=== PATIENT | female | born 1990 | race Caucasian/White ===

== ENCOUNTER 2024-12-19 12:37 | Inpatient (IN) | payer OTHER ==
[~2024-12-19] VITALS: Ht 149.9 cm; Wt 71.3 kg
[2024-12-19 12:48] VITALS: O2SAT 100
[2024-12-19] MEDS ORDERED: CEFTRIAXONE 1GM/50ML 50 ML IV ONE (14:00)
[2024-12-19 14:23] LABS: HEMATOCRIT. 36.0 % (36.0-48.0); HEMOGLOBIN. 11.5 g/dL (12.0-16.0); MEAN PLATELET VOLUME 8.0 fl (7.4-10.4); PLATELET 368 x1000/uL (130-400); RED BLOOD CELL COUNT 4.24 mill/uL (4.2-5.4); RED CELL DISTRIBUTION WIDTH 15.1 % (11.6-14.6)
[2024-12-19 14:38] LABS: CREATININE 0.6 mg/dL (0.6-1.0); UREA NITROGEN BLOOD < 5 mg/dL (9-23)
[2024-12-19 14:40] LABS: BAND% 11.0 % (1.0-6.0); LYMPHOCYTES % MANUAL 11.0 % (20.0-60.0); MONOCYTES % MANUAL 3.0 % (2.0-8.0); NEUTROPHILS % MANUAL 75.0 % (45.0-75.0); PLATELET ESTIMATE NORMAL
[2024-12-19 14:42] LABS: CLARITY URINE CLEAR (CLEAR); COLOR URINE YELLOW (YELLOW); GLUCOSE URINE NEGATIVE (NEGATIVE); KETONES URINE NEGATIVE (NEGATIVE); LEUKOCYTE ESTERASE URINE 1+ (NEGATIVE); NITRITE URINE POSITIVE (NEGATIVE); OCCULT BLOOD URINE 2+ (NEGATIVE); PH URINE 8.0 (4.5-8.0); PROTEIN URINE 1+ (NEGATIVE); SPECIFIC GRAVITY URINE 1.011 (1.005-1.030); UROBILINOGEN URINE 1.0 E.U./dL (0.2-1.0)
[2024-12-19 14:49] LABS: TROPONIN I HIGH SENSITIVITY < 4 ng/L (3.0-34)
[2024-12-19 14:52] LABS: HCG SCREEN NEGATIVE
[2024-12-19] MEDS: SODIUM CHLORIDE 0.9% (SEPSIS BOLUS) IV ONE (14:58)
[2024-12-19 15:06] LABS: *AMPHETAMINES SCREEN URINE NEGATIVE (NEGATIVE); *BARBITURATES SCREEN URINE NEGATIVE (NEGATIVE); *BENZODIAZEPINES SCREEN URINE NEGATIVE (NEGATIVE); *COCAINE SCREEN URINE NEGATIVE (NEGATIVE); METHADONE URINE SCREEN NEGATIVE (NEGATIVE); OPIATES URINE SCREEN NEGATIVE (NEGATIVE)
[2024-12-19 15:07] LABS: CANNABINOID URINE SCREEN NEGATIVE (NEGATIVE); ECSTASY MDMA SCREEN URINE NEGATIVE (NEGATIVE); PHENCYCLIDINE URINE SCREEN NEGATIVE (NEGATIVE)
[2024-12-19 15:14] LABS: BACTERIA URINE 4+; SQUAMOUS EPITHELIAL CELL URINE FEW /lpf (RARE/1+)
[2024-12-19] MEDS: ACETAMINOPHEN 500MG TABLET PO SCH (15:19)
[2024-12-19] MEDS: KETOROLAC 30MG/ML VIAL IV NR (15:19)
[2024-12-19] MEDS: CEFTRIAXONE 1GM/50ML 50 ML IV NR (15:20)
[2024-12-19 16:40] VITALS: BP 98/66; PULSE 125; RESP 18; TEMP 35.9; O2SAT 98
[2024-12-19 17:21] VITALS: BP 98/66; PULSE 125; RESP 16; TEMP 35.6952
[2024-12-19] MEDS ORDERED: ONDANSETRON HCL 4MG/2ML INJ IV PRN (17:30)
[2024-12-19 20:00] VITALS: BP 92/55; PULSE 113; RESP 19; TEMP 36.8; O2SAT 100
[2024-12-19] MEDS: HYDROCODONE/ACETAMINOPHEN 10/325MG TABLET PO PRN (22:51)
[2024-12-20] VITALS: BP 102/56; PULSE 138; RESP 19; TEMP 38.4; O2SAT 97
[2024-12-20 08:00] VITALS: BP 99/51; PULSE 125; RESP 18; TEMP 36.7; O2SAT 98
[2024-12-20 12:00] VITALS: BP 124/82; PULSE 98; RESP 18; TEMP 35.8; O2SAT 98
[2024-12-20] MEDS ORDERED: NALOXONE HCL 0.4MG/ML VIAL IV PRN (12:15)
[2024-12-20] MEDS: SODIUM CHLORIDE 0.9% 1,000 ML IV SCH (12:52)
[2024-12-20] MEDS: CEFTRIAXONE 1GM/50ML 50 ML IV SCH (15:02)
[2024-12-20 16:00] VITALS: BP 127/73; PULSE 119; RESP 19; TEMP 36.2; O2SAT 98
[2024-12-20 20:00] VITALS: BP 103/64; PULSE 114; RESP 20; TEMP 36.7; O2SAT 99
[2024-12-21] VITALS: BP 115/70; PULSE 115; RESP 20; TEMP 36.3; O2SAT 97
[2024-12-21 04:00] VITALS: BP 96/62; PULSE 118; RESP 19; TEMP 36.6; O2SAT 97
[2024-12-21 08:00] VITALS: BP 107/66; PULSE 125; RESP 18; TEMP 36.7; O2SAT 97
[2024-12-21] MEDS: METOPROLOL TARTRATE 25MG TABLET PO SCH (09:13)
[2024-12-21 12:00] VITALS: BP 110/61; PULSE 109; RESP 18; TEMP 36.7; O2SAT 98
[2024-12-21 12:00] LABS: HEMATOCRIT. 31.3 % (36.0-48.0); HEMOGLOBIN. 9.9 g/dL (12.0-16.0); RED BLOOD CELL COUNT 3.73 mill/uL (4.2-5.4); RED CELL DISTRIBUTION WIDTH 15.2 % (11.6-14.6)
[2024-12-21 12:29] LABS: CREATININE 0.5 mg/dL (0.6-1.0); UREA NITROGEN BLOOD < 5 mg/dL (9-23)
[2024-12-21 13:24] LABS: PLATELET 376 x1000/uL (130-400)
[2024-12-21 13:26] LABS: BAND% 2.0 % (1.0-6.0); LYMPHOCYTES % MANUAL 26.0 % (20.0-60.0); MONOCYTES % MANUAL 8.0 % (2.0-8.0); NEUTROPHILS % MANUAL 64.0 % (45.0-75.0); PLATELET ESTIMATE NORMAL
[2024-12-21 16:00] VITALS: BP 114/68; PULSE 115; RESP 18; TEMP 36.1; O2SAT 98
[2024-12-21 20:00] VITALS: BP 110/73; PULSE 101; RESP 18; TEMP 36.4; O2SAT 98
[2024-12-22] VITALS: BP 115/87; PULSE 105; RESP 19; TEMP 36.7; O2SAT 99
[2024-12-22 04:00] VITALS: BP 96/58; PULSE 110; RESP 19; TEMP 36.2; O2SAT 99
[2024-12-22 08:00] VITALS: BP 112/60; PULSE 118; RESP 15; TEMP 36.7; O2SAT 96
[2024-12-22] MEDS ORDERED: LEVO750T68 MT (08:59)
[2024-12-22] MEDS ORDERED: METO25TA6 MT (09:50)
[2024-12-22 10:24] VITALS: BP 112/60; PULSE 100; RESP 15; TEMP 98.1
== END 2024-12-22 11:45 | disposition home or self-care (01) | DRG 720 ==
LOC: ER 12:37 → EDBEDREQ 14:07 → 6WST 15:04 → EDBEDREQ 15:07 → EDBEDREQTM 15:07 → 6WST 17:38
PROVIDERS: ADMIT Internal Medicine; ATTEND Internal Medicine
DX: A41.9 Sepsis, unspecified organism (principal); E66.9 Obesity, unspecified; N39.0 Urinary tract infection, site not specified; R61 Generalized hyperhidrosis; M25.552 Pain in left hip; M25.551 Pain in right hip; Z68.31 Body mass index [BMI] 31.0-31.9, adult; Z79.899 Other long term (current) drug therapy
CPT/HCPCS: 36415; 71045; 80048; 80305; 80320; 81003; 82962; 83605; 84484; 84703; 85025; 87077; 87186; 93005; 96360; 99291; J0696; J1885; J7030; G0480